=== PATIENT | male | born 1990 | race Caucasian/White ===

== ENCOUNTER 2019-09-18 13:38 | Emergency (ER) | payer OTHER ==
[~2019-09-18] VITALS: Ht 182.9 cm; Wt 80.0 kg
[2019-09-18 16:57] LABS: BASOPHILS % 1.3 % (0.0-2.0); HEMATOCRIT. 43.6 % (42.0-52.0); LYMPHOCYTES % 19.9 % (20.0-50.0); MEAN CORPUSCULAR HEMOGLOBIN 29.7 pg (28.0-32.0); MEAN CORPUSCULAR VOLUME 86.4 fL (80.0-94.0); MEAN PLATELET VOLUME 10.1 fl (7.4-10.4); MONOCYTES % 6.3 % (2.0-8.0); NEUTROPHILS % 71.5 % (40.0-76.0); PLATELET 190 x1000/uL (130-400); RED BLOOD CELL COUNT 5.05 mill/uL (4.7-6.1)
[2019-09-18 16:58] LABS: PROTHROMBIN TIME 10.7 sec (9.6-11.0)
[2019-09-18 17:00] LABS: CLARITY URINE CLEAR (CLEAR); COLOR URINE YELLOW (YELLOW); KETONES URINE NEGATIVE (NEGATIVE); LEUKOCYTE ESTERASE URINE NEGATIVE (NEGATIVE); NITRITE URINE NEGATIVE (NEGATIVE); OCCULT BLOOD URINE NEGATIVE (NEGATIVE); PH URINE 7.5 (4.5-8.0); PROTEIN URINE NEGATIVE (NEGATIVE); SPECIFIC GRAVITY URINE 1.003 (1.005-1.030); UROBILINOGEN URINE 0.2 E.U./dL (0.2-1.0)
[2019-09-18 17:01] LABS: CHLORIDE 106 mEq/L (98-107)
[2019-09-18 18:00] VITALS: BP 120/80
[2019-09-18 18:04] LABS: HEPATITIS B SURFACE ANTIGEN NEGATIVE
[2019-09-18 18:34] LABS: HEPATITIS A AB IGM NEGATIVE (NEGATIVE)
[2019-09-21 08:07] LABS: HIV SCREEN 4G Non Reactive (Non Reactive)
== END 2019-09-18 18:09 | disposition home or self-care (01) ==
LOC: ER 13:38
DX: R55 Syncope and collapse (principal); R42 Dizziness and giddiness; Z90.49 Acquired absence of other specified parts of digestive tract
CPT/HCPCS: 36415; 71045; 81003; 86592; 86705; 86709; 86803; 87340; 87389; 93005; 99284